=== PATIENT | male | born 1950 | race Caucasian/White ===

== ENCOUNTER 2019-05-17 07:43 | Day surgery (SDC) | payer MEDICARE ==
[~2019-05-17] VITALS: Ht 172.7 cm; Wt 72.1 kg
[~2019-05-17 07:43] MED LIST: AMLO10TA5 PO; ASPI81TA85 PO; ATOR40TA75 PO; LEVE1INJ5 SQ; LOSA25TA14 PO; MAGN500T2 PO; METF10004 PO; METO1TAB7 PO; NITR0.4S14 SL; NS 1,000 ML IV ONE; OMEP40CA2 PO; SUCR1TA PO; TRUL10IN SQ; VITA200015 PO
[2019-05-17] MEDS ORDERED: PROPOFOL 500 MG/50 ML VIAL As Ordered ONE (08:10)
[2019-05-17] MEDS ORDERED: fentaNYL 100 MCG/2 ML INJECTION (J3010) As Ordered ONE (08:11)
[2019-05-17] MEDS ORDERED: LIDOCAINE 2% INJ 100 MG/5 ML SDV (FOR ANES.) As Ordered ONE (08:12)
--- NOTE | 2019-05-17 09:20 | ROOR ---
Patient Name: Issa Goodrich Procedure Date: 05/17/2019 9:00 AM Date of : 1950 Age: 68 Room: [facility] Gender: Male Note Status: Finalized Procedure: Upper Endoscopy + Biopsies Indications: Heartburn, Exclusion of Ames's esophagus Providers: Delvis Dave MD Referring MD: Andrade Schuler MD Requesting Provider: Medicines: Monitored Anesthesia Care Complications: No immediate complications. Procedure: Pre-Anesthesia Assessment: - The heart rate, respiratory rate, oxygen saturations, blood pressure, adequacy of pulmonary ventilation, and response to care were monitored throughout the procedure. The Endoscope was introduced through the mouth, and advanced to the second part of duodenum. The upper GI endoscopy was accomplished without difficulty. The patient tolerated the procedure well. Findings: The Z-line was variable and was found 40 cm from the incisors. Multiple biopsies were obtained with cold forceps for evaluation to rule out Ames's Esophagus randomly at the gastroesophageal junction. Localized mild inflammation characterized by adherent blood and congestion (edema) was found in the gastric fundus. Biopsies were taken with a cold forceps for histology. Biopsies were taken with a cold forceps for Helicobacter pylori testing. The exam of the duodenum was otherwise normal. Impression: - Z-line variable, 40 cm from the incisors. - Mucosal changes suspicious for gastritis. Biopsied. - Multiple biopsies were obtained at the gastroesophageal junction. - The examination was otherwise normal. Recommendation: - Patient has a contact number available for emergencies. The signs and symptoms of potential delayed complications were discussed with the patient. Return to normal activities tomorrow. Written discharge instructions were provided to the patient. - Discharge patient to home. - Follow an antireflux regimen. - Continue present medications. - Await pathology results. - Telephone GI clinic for pathology results in 1 week. - Return to referring physician. - Check Portal Online for Path Results.([email or web address] - The findings and recommendations were discussed with the patient's family. Delvis Dave MD Delvis Dave MD 05/17/2019 9:20:13 AM Electronically signed by Delvis Dave MD Number of Addenda: 0 Note Initiated On: 05/17/2019 9:00 AM Estimated Blood Loss: Estimated blood loss: none.
--- NOTE | 2019-05-17 09:44 | ROOR ---
Patient Name: Issa Goodrich Procedure Date: 05/17/2019 9:01 AM Date of : 1950 Age: 68 Room: [facility] Gender: Male Note Status: Finalized Procedure: Total Colonoscopy to Cecum + Bx. To r/o Microscopic Colitis Indications: Clinically significant diarrhea of unexplained origin Providers: Delvis Dave MD Referring MD: Andrade Schuler MD Requesting Provider: Medicines: Monitored Anesthesia Care Complications: No immediate complications. Procedure: Pre-Anesthesia Assessment: - The heart rate, respiratory rate, oxygen saturations, blood pressure, adequacy of pulmonary ventilation, and response to care were monitored throughout the procedure. The Colonoscope was introduced through the anus and advanced to the cecum, identified by appendiceal orifice and ileocecal valve. The colonoscopy was performed without difficulty. The patient tolerated the procedure well. The quality of the bowel preparation was fair. Findings: The perianal and digital rectal examinations were normal. Non-bleeding internal hemorrhoids were found during retroflexion. The hemorrhoids were small and Grade I (internal hemorrhoids that do not prolapse). Extensive amounts of semi-liquid stool was found in the entire colon, precluding visualization. Biopsies for histology were taken with a cold forceps from the cecum, ascending colon, transverse colon, descending colon and rectosigmoid colon for evaluation of microscopic colitis. The exam was otherwise without abnormality on direct and retroflexion views. Impression: - Preparation of the colon was fair. - Non-bleeding internal hemorrhoids. - Stool in the entire examined colon. - The examination was otherwise normal on direct and retroflexion views. - Biopsies were taken with a cold forceps from the cecum, ascending colon, transverse colon, descending colon and rectosigmoid colon for evaluation of microscopic colitis. - The exam was otherwise normal to the cecum. Recommendation: - Patient has a contact number available for emergencies. The signs and symptoms of potential delayed complications were discussed with the patient. Return to normal activities tomorrow. Written discharge instructions were provided to the patient. - High fiber diet. - Discharge patient to home. - Continue present medications. - Await pathology results. - Telephone GI clinic for pathology results in 1 week. - Repeat colonoscopy in 10 years for screening purposes. - Check Portal Online for Path Results.([email or web address] - The findings and recommendations were discussed with the patient's family. Delvis Dave MD Delvis Dave MD 05/17/2019 9:43:48 AM Electronically signed by Delvis Dave MD Number of Addenda: 0 Note Initiated On: 05/17/2019 9:01 AM Estimated Blood Loss: Estimated blood loss: none.
[2019-05-17 10:07] VITALS: BP 157/72
== END 2019-05-17 10:20 | disposition home or self-care (01) ==
LOC: M OPP 07:43
PROVIDERS: ATTEND Internal Medicine Gastroenterology
DX: R19.7 Diarrhea, unspecified (principal); K64.0 First degree hemorrhoids; R12 Heartburn; K22.8 Other specified diseases of esophagus; K29.70 Gastritis, unspecified, without bleeding; K31.89 Other diseases of stomach and duodenum; I10 Essential (primary) hypertension; I25.10 Atherosclerotic heart disease of native coronary artery without angina pectoris; Z95.5 Presence of coronary angioplasty implant and graft; E78.5 Hyperlipidemia, unspecified; R01.1 Cardiac murmur, unspecified; E11.9 Type 2 diabetes mellitus without complications; K21.9 Gastro-esophageal reflux disease without esophagitis; M19.90 Unspecified osteoarthritis, unspecified site; M54.89 Other dorsalgia; F17.210 Nicotine dependence, cigarettes, uncomplicated; Z91.030 Bee allergy status; Z88.8 Allergy status to other drugs, medicaments and biological substances; Z79.82 Long term (current) use of aspirin; Z79.899 Other long term (current) drug therapy; Z79.4 Long term (current) use of insulin
CPT/HCPCS: 43239; 45380; 88305; J3010

== ENCOUNTER → 2019-06-04 | Outpatient (REF) | payer MEDICARE ==
[~2019-06-04] MED LIST changes: -NS 1,000 ML IV ONE; -OMEP40CA2 PO; +OMEP40CA97 PO
== END ==
LOC: M LAB REF 11:25
PROVIDERS: ATTEND Internal Medicine Gastroenterology
DX: R19.7 Diarrhea, unspecified (principal)

== ENCOUNTER → 2022-08-03 | Outpatient (CLI) | payer MEDICARE ==
[~2022-08-03] MED LIST changes: -AMLO10TA5 PO; +AMLO1TAB25 PO; -ASPI81TA85 PO; +ASPI81TA86 PO; +ISOVUE-370 76% 100ML VIAL As Ordered ONE; +LOSA25TA13 PO; -LOSA25TA14 PO; +OMEP40CA4 PO; -OMEP40CA97 PO
== END ==
LOC: M RAD 08:25
PROVIDERS: ATTEND Surgery Vascular Surgery
DX: I70.203 Unspecified atherosclerosis of native arteries of extremities, bilateral legs (principal); I70.0 Atherosclerosis of aorta; I70.1 Atherosclerosis of renal artery; I77.4 Celiac artery compression syndrome; I77.819 Aortic ectasia, unspecified site
CPT/HCPCS: 75635; Q9967

== ENCOUNTER → 2025-03-28 | Outpatient (CLI) | payer OTHER, MEDICAID ==
[~2025-03-28] MED LIST changes: +INSU100I6 SQ; -ISOVUE-370 76% 100ML VIAL As Ordered ONE; -LEVE1INJ5 SQ
== END ==
LOC: M IRPRO 08:21
PROVIDERS: ATTEND Nurse Practitioner Family
DX: L08.9 Local infection of the skin and subcutaneous tissue, unspecified (principal); B96.20 Unspecified Escherichia coli [E. coli] as the cause of diseases classified elsewhere
CPT/HCPCS: 36569; C1751